=== PATIENT | male | born 1955 | race American Indian/Alaskan Native ===

== ENCOUNTER 2017-08-18 12:11 | Day surgery (SDC) | payer MEDICARE, OTHER ==
[2016-04-18 09:23] VITALS: BMI 46.8
[2017-08-18] MEDS ORDERED: Lactated Ringer's 1,000 ML IV ONE (13:34)
[2017-08-18] MEDS ORDERED: Iohexol 240 (50 ml) ONE (13:45)
[2017-08-18] MEDS ORDERED: Lidocaine 2% Jelly (Uro-Jet) ONE (13:46)
[2017-08-18] MEDS ORDERED: Oxycodone/Acetaminophen 5/325 mg Tab PO PRN (14:14)
[2017-08-18] MEDS ORDERED: Propofol 10 mg/ml Inj (20 ML) ONE ×2 (14:16→14:18)
[2017-08-18] MEDS ORDERED: Lidocaine Hydrochloride 5 ML INJ ONE (14:16)
[2017-08-18] MEDS ORDERED: Midazolam 2 MG/2 ML VIAL ONE (14:18)
[2017-08-18 16:33] VITALS: BP 148/90; PULSE 90; RESP 18; TEMP 97; O2SAT 100
--- NOTE | 2017-08-27 08:05 | HP ---
UROLOGY ADMISSION HISTORY AND PHYSICAL REASON FOR ADMISSION: Workup of voiding dysfunction. HISTORY OF PRESENT ILLNESS: This is a very pleasant gentleman, who is extremely compliant and has voiding dysfunction, irritative and obstructive complaints, and is here to rule out urethral stricture and for a possible cystoscopy and IOU, internal optical urethrotomy. PAST MEDICAL AND SURGICAL HISTORY: He has underlying history of circumcision from Urology standpoint. No history of an AK or CVA. REVIEW OF SYSTEMS: Listed above. No weight loss, chest pain, night sweats, etc. SOCIAL HISTORY: Essentially unremarkable. MEDICATIONS: See chart. ALLERGIES: NONE. PHYSICAL EXAMINATION: GENERAL: Well-nourished male, in no apparent distress. VITAL SIGNS: Within normal limits, included in the chart. NECK: No cervical or axillary lymphadenopathy. LUNGS: Clear. HEART: Normal S1 and S2. ABDOMEN: Overall, soft and nontender. GENITOURINARY: He has a normal male phallus. He is circumcised. The incision has healed well. No testicular masses. RECTAL: 20 - 30 gm prostate. LABORATORY DATA: Please see chart. PSA, BUN, creatinine, and CBC all noted. DIAGNOSES: Voiding dysfunction, decreased flow of stream, rule out urethral stricture. He has irritative and obstructive complaints. ASSESSMENT AND PLAN: Very pleasant gentleman with the above history. We discussed options. He does not want an office cystoscopy and given the fact that we are concerned for urethral strictures, we are going to plan for a cystoscopy and internal optical urethrotomy and further plans will follow. Antibiotics and prophylactics to be used. Risks and benefits were discussed at length. Location, options, etc, discussed. Jorge Louise MD
--- NOTE | 2017-08-27 08:29 | OP ---
PROCEDURE DATE: 08/18/2017 PREOPERATIVE DIAGNOSES: Irritative and obstructive voiding complaints, decreased flow of stream, nocturia. POSTOPERATIVE DIAGNOSES: Irritative and obstructive voiding complaints, decreased flow of stream, nocturia but no evidence of urethral stricture. PROCEDURE: Cystoscopy. SURGEON: Jorge Louise MD COMPLICATIONS: There were no complication. ESTIMATED BLOOD LOSS: Less than 10 mL. FINDINGS: Normal anterior urethra, no strictures. Meatus is normal. Anterior urethra is normal. The prostatic verumontanum is about 2 to 3 cm, fairly visually occlusive. No bladder lesions and multiple pictures were taken today. my recommendation. INDICATIONS: See the history and physical for details. A very pleasant gentleman who has voiding dysfunction, here for the above procedure. DESCRIPTION OF PROCEDURE: After obtaining the informed consent, the patient was placed on the table. Routine monitors were placed. Time-out was called to confirm patient positioning. Antibiotic prophylaxis was used. We ____ the patient. Cystoscope via the urethra. Normal anterior urethra is noted. There are no strictures and the verumontanum is visually occlusive. No bladder lesions were identified. The ureteral orifices with clear efflux on both sides. Multiple pictures were taken today. The patient tolerated the procedure well without complications. The rectal exam showed 20 to 30 gm prostate, soft and smooth. Jorge Louise MD
== END 2017-08-18 17:00 | disposition home or self-care (01) ==
LOC: C.SDS 12:11
PROVIDERS: ATTEND Urology
DX: R35.1 Nocturia (principal); R39.12 Poor urinary stream; R31.9 Hematuria, unspecified

== ENCOUNTER 2018-03-26 18:47 | Inpatient (IN) | payer MEDICARE, OTHER ==
[2018-03-26 18:54] VITALS: BMI 45.0
[2018-03-26 20:03] LABS: BASO # 0.1 K/uL (0.0-0.2); BASO % 1.4 % (0.0-2.0); EOS # 0.7 K/uL (0.0-0.7); HEMOGLOBIN 12.5 g/dL (12.0-18.0); LYMPH # 2.2 K/uL (1.0-4.3); LYMPH % 37.7 % (20.0-40.0); MEAN CELL VOLUME 84.7 fL (80.0-94.0); MEAN CORPUSCULAR HEMOGLOBIN 27.2 pg (27.0-31.0); MEAN CORPUSCULAR HGB CONC 32.1 g/dL (33.0-37.0); MONO # 0.6 K/uL (0.0-0.8); MONO % 10.4 % (0.0-10.0); NEUT # 2.3 K/uL (1.8-7.0); NEUT % 38.5 % (50.0-75.0); NRBC % 0.1 % (0.0-2.0); RBC 4.6 Mil/uL (4.40-5.90); RED CELL DISTRIBUTION WIDTH 13.2 % (11.5-14.5); WHITE BLOOD COUNT 5.9 K/uL (4.8-10.8)
[2018-03-26 20:08] LABS: SQUAMOUS EPITHIAL 2 /hpf (0-5); URINE BILIRUBIN NEGATIVE (NEGATIVE); URINE BLOOD NEGATIVE (NEGATIVE); URINE CLARITY Clear (Clear); URINE COLOR Yellow (YELLOW); URINE GLUCOSE (UA) NORMAL (Normal); URINE LEUKOCYTE ESTERASE NEG Leu/uL (Negative); URINE PROTEIN NEGATIVE (NEGATIVE)
[2018-03-26 20:19] LABS: ALB/GLOB RATIO 1.3 (1.0-2.1); ALBUMIN 4.1 g/dL (3.5-5.0); ALT/SGPT 19 U/L (21-72); AST/SGOT 17 U/L (17-59); BLOOD UREA NITROGEN 21 mg/dL (9-20); CALCIUM 9.8 mg/dl (8.6-10.4); GFR NON-AFRICAN AMERICAN > 60
--- NOTE | 2018-03-26 21:01 | C.PDOC ---
Addendum entered and electronically signed by Susie Madrigal PA-C 03/27/18 03:18: Addendum Addendum: 03/27/18 03:16 Case was d/w who admits for . Patient was accepted for observation and IV antibiotics. Original Note: History Of Present Illness 62 y/o male, with PMHx of diabetes, presents to ED for evaluation of ulcer to left inner ankle area for the last 3-4 days. Pt states he noticed ulcer was draining fluid today and has developed pain and swelling to the region. Pt states he was seen by tree feller for toenail treatments. Otherwise, denies fever, chills, redness, weakness, or numbness. Time Seen by Provider: 03/26/18 19:23 Chief Complaint (Nursing): Abnormal Skin Integrity History Per: Patient History/Exam Limitations: no limitations Onset/Duration Of Symptoms: Days Current Symptoms Are (Timing): Still Present Location Of Injury: Left: Ankle Quality Of Symptoms: Painful, Swollen, Draining Recent travel outside of the [place]: No Additional History Per: Patient Past Medical History Reviewed: Historical Data, Nursing Documentation, Vital Signs Vital Signs: Last Vital Signs Temp 97.7 F 03/26/18 18:53 Pulse 54 L 03/26/18 18:53 Resp 18 03/26/18 18:53 BP 128/70 03/26/18 18:53 Pulse Ox 100 03/26/18 18:53 - Medical History PMH: Cardia Arrhythmia ("I HAVE SOME KIND OF IRREGULAR HEART BEAT'), HTN, Hypercholesterolemia, Peripheral Edema Denies: Chronic Kidney Disease Family History: States: Unknown Family Hx - Social History Hx Alcohol Use: No Hx Substance Use: No - Immunization History Hx Tetanus Toxoid Vaccination: No Hx Influenza Vaccination: No Hx Pneumococcal Vaccination: No Review Of Systems Except As Marked, All Systems Reviewed And Found Negative. Constitutional: Negative for: Fever, Chills Musculoskeletal: Positive for: Foot Pain Skin: Positive for: Other (ulcer to left foot) Neurological: Negative for: Weakness, Numbness Physical Exam - Physical Exam Appears: Non-toxic, No Acute Distress Skin: Other (ulcer to left medial malleolus draining yellow fluid) Head: Atraumatic, Normacephalic Eye(s): bilateral: Normal Inspection Extremity: Normal ROM (FROM of left foot), Tenderness (left lateral malleolus region), No Calf Tenderness, Capillary Refill (less than 2 seconds), No Deformity, Swelling (swelling to left foot) Pulses: Left Dorsalis Pedis: Normal, Right Dorsalis Pedis: Normal Neurological/Psych: Oriented x3, Normal Speech, Normal Motor, Normal Sensation ED Course And Treatment - Laboratory Results Result Diagrams: 03/26/18 19:57 03/26/18 19:57 O2 Sat by Pulse Oximetry: 100 - Other Rad Left ankle Xray X-Ray: Interpreted by Me, Viewed By Me Interpretation: Arthritic changes. Flat foot. No obvious ostromyelitis. Progress Note: Blood work, UA, left ankle Xray ordered and reviewed. Will discuss case with Dr. Osuna. Disposition - Disposition Disposition: HOSPITALIZED Disposition Time: 21:32 Condition: FAIR Forms: [facility] (Greenlandic) - Clinical Impression Clinical Impression: Diabetic foot ulcer - PA / C++ PROFESSOR / Resident Statement MD/DO has reviewed & agrees with the documentation as recorded. - Scribe Statement The provider has reviewed the documentation as recorded by the Scribe KP All medical record entries made by the Scribe were at my direction and personally dictated by me. I have reviewed the chart and agree that the record accurately reflects my personal performance of the history, physical exam, medical decision making, and the department course for this patient. I have also personally directed, reviewed, and agree with the discharge instructions and disposition. Decision To Admit - Pt Status Changed To: Hospital Disposition Of: Observation - . Bed Request Type: Regular Admitting Physician: Noel Osuna Patient Diagnosis: Diabetic foot ulcer
[2018-03-26] MEDS ORDERED: Piperacillin/Tazobact 3.375 gm 100 ML IVPB ONE (22:25)
[2018-03-26] MEDS: (Novolin R) Insulin Human Regular 100 units/ml vial SC SCH (22:29)
[2018-03-26] MEDS: Piperacillin/Tazobact 3.375 GM in Sodium Chloride 100 ML IVPB SCH (22:29)
[2018-03-26 23:35] VITALS: RESP 20
[2018-03-27] MEDS: Piperacillin/Tazobact 3.375 GM in Sodium Chloride 100 ML IVPB SCH ×4 (03:20→21:31)
[2018-03-27] MEDS: (Novolin R) Insulin Human Regular 100 units/ml vial SC SCH ×4 (08:20→22:55)
--- NOTE | 2018-03-27 09:40 | CP.PCM.CON ---
<Geraldo Sweet - Last Filed: 03/27/18 09:40> Past Patient History - Infectious Disease Hx of Infectious Diseases: None - Past Medical History & Family History Past Medical History?: Yes - Past Social History Smoking Status: Never Smoked - CARDIAC Hx Cardia Arrhythmia: Yes ("I HAVE SOME KIND OF IRREGULAR HEART BEAT') Hx Hypercholesterolemia: Yes Hx Hypertension: Yes Hx Peripheral Edema: Yes - PULMONARY Hx Respiratory Disorders: No - NEUROLOGICAL Hx Neurological Disorder: No - HEENT Hx HEENT Problems: No - RENAL Hx Chronic Kidney Disease: No - ENDOCRINE/METABOLIC Hx Endocrine Disorders: Yes Hx Diabetes Mellitus Type 2: Yes - HEMATOLOGICAL/ONCOLOGICAL Hx Blood Disorders: No - INTEGUMENTARY Hx Dermatological Problems: No - MUSCULOSKELETAL/RHEUMATOLOGICAL Hx Musculoskeletal Disorders: No - GASTROINTESTINAL Hx Gastrointestinal Disorders: No - GENITOURINARY/GYNECOLOGICAL Hx Genitourinary Disorders: Yes Hx Hematuria: Yes - PSYCHIATRIC Hx Substance Use: No - SURGICAL HISTORY Hx Surgeries: Yes Hx Cardiac Catheterization: Yes Hx Orthopedic Surgery: Yes - ANESTHESIA Hx Anesthesia: Yes Hx Anesthesia Reactions: No Hx Malignant Hyperthermia: No Meds Allergies/Adverse Reactions: Allergies Allergy/AdvReac Type Severity Reaction Status Date / Time No Known Allergies Allergy Verified 03/26/18 18:53 - Medications Medications: Current Medications Apixaban (Eliquis) 5 mg PO BID [facility], [facility] Last Admin: 03/27/18 00:29 Dose: Not Given Carvedilol (Coreg) 25 mg PO DAILY [facility] Finasteride (Proscar) 5 mg PO DAILY [facility] Furosemide (Lasix) 40 mg PO DAILY [facility] Glimepiride (Amaryl) 4 mg PO BID [facility] Home Med (Potassium Chloride [Potassium Chloride]) 20 meq PO DAILY [facility]1983 Piperacillin Sod/Tazobactam (Sod 3.375 gm/ Sodium Chloride) 100 mls @ 200 mls/hr IVPB Q6H [facility], [facility]; Protocol Last Admin: 03/27/18 03:20 Dose: 200 mls/hr Insulin Human Regular (Novolin R) 0 unit SC [facility]; Protocol Last Admin: 03/27/18 08:20 Dose: Not Given Metformin HCl (Glucophage) 850 mg PO BID [facility]1983 Metoprolol Tartrate (Lopressor) 100 mg PO BID [facility]1983 Rosuvastatin Calcium (Crestor) 5 mg PO [facility] Last Admin: 03/26/18 22:30 Dose: 5 mg Sitagliptin Phosphate (Januvia) 50 mg PO DAILY [facility] Tamsulosin HCl (Flomax) 0.4 mg PO DAILY [facility] Results - Vital Signs Recent Vital Signs: Last Vital Signs Temp 97.7 F 03/27/18 07:00 Pulse 60 03/27/18 07:00 Resp 20 03/27/18 07:00 BP 151/91 H 03/27/18 07:00 Pulse Ox 99 03/27/18 07:00 - Labs Result Diagrams: 03/26/18 19:57 03/26/18 19:57 Labs: Laboratory Results - last 24 hr 03/26/18 03/26/18 03/26/18 18:56 19:57 19:57 WBC 5.9 RBC 4.60 Hgb 12.5 Hct 38.9 MCV 84.7 MCH 27.2 MCHC 32.1 L RDW 13.2 Plt Count 221 MPV 9.0 Neut % (Auto) 38.5 L Lymph % (Auto) 37.7 Blount % (Auto) 10.4 H Eos % (Auto) 12.0 H Baso % (Auto) 1.4 Neut # (Auto) 2.3 Lymph # (Auto) 2.2 Blount # (Auto) 0.6 Eos # (Auto) 0.7 Baso # (Auto) 0.1 Sodium Potassium Chloride Carbon Dioxide Anion Gap BUN Creatinine Est GFR ( Amer) Est GFR (Non-Af Amer) POC Glucose (mg/dL) 128 H Random Glucose Calcium Total Bilirubin AST ALT Alkaline Phosphatase Total Protein Albumin Globulin Albumin/Globulin Ratio Urine Color Yellow Urine Clarity Clear Urine pH 5.0 Ur Specific Bryant 1.016 Urine Protein Negative Urine Glucose (UA) Normal Urine Ketones Negative Urine Blood Negative Urine Nitrate Negative Urine Bilirubin Negative Urine Urobilinogen 4.0 Ur Leukocyte Esterase Neg Urine WBC (Auto) < 1 Urine RBC (Auto) 1 Ur Squamous Epith Cells 2 03/26/18 03/26/18 03/27/18 19:57 22:26 06:58 WBC RBC Hgb Hct MCV MCH MCHC RDW Plt Count MPV Neut % (Auto) Lymph % (Auto) Blount % (Auto) Eos % (Auto) Baso % (Auto) Neut # (Auto) Lymph # (Auto) Blount # (Auto) Eos # (Auto) Baso # (Auto) Sodium 142 Potassium 4.4 Chloride 104 Carbon Dioxide 24 Anion Gap 18 BUN 21 H Creatinine 1.1 Est GFR ( Amer) > 60 Est GFR (Non-Af Amer) > 60 POC Glucose (mg/dL) 81 79 Random Glucose 141 H Calcium 9.8 Total Bilirubin 0.6 AST 17 ALT 19 L Alkaline Phosphatase 35 L Total Protein 7.4 Albumin 4.1 Globulin 3.3 Albumin/Globulin Ratio 1.3 Urine Color Urine Clarity Urine pH Ur Specific Bryant Urine Protein Urine Glucose (UA) Urine Ketones Urine Blood Urine Nitrate Urine Bilirubin Urine Urobilinogen Ur Leukocyte Esterase Urine WBC (Auto) Urine RBC (Auto) Ur Squamous Epith Cells <Cristiana Banks - Last Filed: 03/27/18 15:03> History of Present Illness - History of Present Illness History of Present Illness: Podiatry Consult Note for Dr. Sweet: 62 yo male patient, with PMHx of DM, seen and evaluated at bedside for L ankle ulceration. Patient was admitted for observation and IV antibiotics for L ankle ulcer. Patient states that the ulceration appeared 3-4 days ago and he presented to the ED once he noticed it was draining. Patient reports mild pain and tenderness to the area. He currently denies N/V/F/SOB/CP. PMHx: DM ALL: NKDA Review of Systems - Review of Systems Review of Systems: As per HPI Meds - Medications Medications: Current Medications Apixaban (Eliquis) 5 mg PO BID [facility] Last Admin: 03/27/18 10:09 Dose: 5 mg Carvedilol (Coreg) 25 mg PO DAILY [facility] Last Admin: 03/27/18 10:11 Dose: 25 mg Finasteride (Proscar) 5 mg PO DAILY [facility] Last Admin: 03/27/18 10:09 Dose: 5 mg Furosemide (Lasix) 40 mg PO DAILY [facility] Last Admin: 03/27/18 10:11 Dose: 40 mg Glimepiride (Amaryl) 4 mg PO BID [facility] Last Admin: 03/27/18 10:09 Dose: 4 mg Piperacillin Sod/Tazobactam (Sod 3.375 gm/ Sodium Chloride) 100 mls @ 200 mls/hr IVPB Q6H [facility]; Protocol Last Admin: 03/27/18 10:30 Dose: 200 mls/hr Insulin Human Regular (Novolin R) 0 unit SC A[facility]S [facility]; Protocol Last Admin: 03/27/18 12:17 Dose: Not Given Metformin HCl (Glucophage) 850 mg PO BID [facility] Last Admin: 03/27/18 10:09 Dose: 850 mg Metoprolol Tartrate (Lopressor) 100 mg PO BID [facility] Last Admin: 03/27/18 10:09 Dose: 100 mg Potassium Chloride (K-Dur 20 Meq Er Tab) 20 meq PO DAILY [facility] Last Admin: 03/27/18 10:36 Dose: 20 meq Rosuvastatin Calcium (Crestor) 5 mg PO HS [facility] Last Admin: 03/26/18 22:30 Dose: 5 mg Sitagliptin Phosphate (Januvia) 50 mg PO DAILY [facility] Last Admin: 03/27/18 10:11 Dose: 50 mg Tamsulosin HCl (Flomax) 0.4 mg PO DAILY [facility] Last Admin: 03/27/18 10:09 Dose: 0.4 mg Physical Exam - Constitutional Appears: Well, Non-toxic, No Acute Distress - Head Exam Head Exam: ATRAUMATIC, NORMOCEPHALIC - Extremities Exam Additional comments: B/L Lower extremity exam: Vascular: DP/PT pulses 1/4 bilaterally secondary to edema, CFT < 3 seconds to all digits, TG warm to warm, Pedal hair absent, +2 pitting edema to bilateral lower extremities Ortho: No pain upon palpation of L lower extremity ulceration. MMT 5/5 Neuro: Gross sensation intact b/l Derm: Multiple small ulceration noted to L medial ankle with positive weeping noted of serous drainage, mild erythema present, no tunneling, no tracking, no streaking, no probe to bone, no clinical signs of infection. Hyperpigmented skin with lichenification noted to anterior aspect of b/l lower extremities - Neurological Exam Neurological exam: Alert, Oriented x3 - Psychiatric Exam Psychiatric exam: Normal Affect, Normal Mood Results - Vital Signs Recent Vital Signs: Last Vital Signs Temp 97.7 F 03/27/18 07:00 Pulse 60 03/27/18 07:00 Resp 20 03/27/18 07:00 BP 151/91 H 03/27/18 10:11 Pulse Ox 99 03/27/18 07:00 - Labs Result Diagrams: 03/26/18 19:57 03/26/18 19:57 Labs: Laboratory Results - last 24 hr 03/26/18 03/26/18 03/26/18 18:56 19:57 19:57 WBC 5.9 RBC 4.60 Hgb 12.5 Hct 38.9 MCV 84.7 MCH 27.2 MCHC 32.1 L RDW 13.2 Plt Count 221 MPV 9.0 Neut % (Auto) 38.5 L Lymph % (Auto) 37.7 Blount % (Auto) 10.4 H Eos % (Auto) 12.0 H Baso % (Auto) 1.4 Neut # (Auto) 2.3 Lymph # (Auto) 2.2 Blount # (Auto) 0.6 Eos # (Auto) 0.7 Baso # (Auto) 0.1 Sodium Potassium Chloride Carbon Dioxide Anion Gap BUN Creatinine Est GFR ( Amer) Est GFR (Non-Af Amer) POC Glucose (mg/dL) 128 H Random Glucose Calcium Total Bilirubin AST ALT Alkaline Phosphatase Total Protein Albumin Globulin Albumin/Globulin Ratio Urine Color Yellow Urine Clarity Clear Urine pH 5.0 Ur Specific Bryant 1.016 Urine Protein Negative Urine Glucose (UA) Normal Urine Ketones Negative Urine Blood Negative Urine Nitrate Negative Urine Bilirubin Negative Urine Urobilinogen 4.0 Ur Leukocyte Esterase Neg Urine WBC (Auto) < 1 Urine RBC (Auto) 1 Ur Squamous Epith Cells 2 03/26/18 03/26/18 03/27/18 19:57 22:26 06:58 WBC RBC Hgb Hct MCV MCH MCHC RDW Plt Count MPV Neut % (Auto) Lymph % (Auto) Blount % (Auto) Eos % (Auto) Baso % (Auto) Neut # (Auto) Lymph # (Auto) Blount # (Auto) Eos # (Auto) Baso # (Auto) Sodium 142 Potassium 4.4 Chloride 104 Carbon Dioxide 24 Anion Gap 18 BUN 21 H Creatinine 1.1 Est GFR ( Amer) > 60 Est GFR (Non-Af Amer) > 60 POC Glucose (mg/dL) 81 79 Random Glucose 141 H Calcium 9.8 Total Bilirubin 0.6 AST 17 ALT 19 L Alkaline Phosphatase 35 L Total Protein 7.4 Albumin 4.1 Globulin 3.3 Albumin/Globulin Ratio 1.3 Urine Color Urine Clarity Urine pH Ur Specific Bryant Urine Protein Urine Glucose (UA) Urine Ketones Urine Blood Urine Nitrate Urine Bilirubin Urine Urobilinogen Ur Leukocyte Esterase Urine WBC (Auto) Urine RBC (Auto) Ur Squamous Epith Cells 03/27/18 11:17 WBC RBC Hgb Hct MCV MCH MCHC RDW Plt Count MPV Neut % (Auto) Lymph % (Auto) Blount % (Auto) Eos % (Auto) Baso % (Auto) Neut # (Auto) Lymph # (Auto) Blount # (Auto) Eos # (Auto) Baso # (Auto) Sodium Potassium Chloride Carbon Dioxide Anion Gap BUN Creatinine Est GFR ( Amer) Est GFR (Non-Af Amer) POC Glucose (mg/dL) 125 H Random Glucose Calcium Total Bilirubin AST ALT Alkaline Phosphatase Total Protein Albumin Globulin Albumin/Globulin Ratio Urine Color Urine Clarity Urine pH Ur Specific Bryant Urine Protein Urine Glucose (UA) Urine Ketones Urine Blood Urine Nitrate Urine Bilirubin Urine Urobilinogen Ur Leukocyte Esterase Urine WBC (Auto) Urine RBC (Auto) Ur Squamous Epith Cells Assessment & Plan - Assessment and Plan (Free Text) Assessment: 62 yo male patient, with PMHx of DM, seen and evaluated at bedside for L ankle ulceration. Plan: Patient seen and evaluated with Dr. Micki OJEDA, absent leukocytosis Wound culture taken from L ankle; pending Local wound care: Betadine, DSD - Wound stable, no surgical intervention at this time Will continue to follow while in house Thank you for the consult - Date & Time Date: 03/27/18 Time: 15:01
[2018-03-27] MEDS ORDERED: Home Med 1 UNIT (Potassium Chloride [Potassium Chloride] 20 MEQ) PO SCH (10:00)
[2018-03-27] MEDS: Potassium Chloride 20 mEq ER Tab PO SCH (10:36)
[2018-03-27] MEDS ORDERED: Pneumococcal 23-Valent Vaccine IM ONE (16:18)
--- NOTE | 2018-03-27 17:09 | RAD ---
Left ankle three views HISTORY: Diabetic foot ulcer COMPARISON: None available. FINDINGS: Large soft tissue ulcer/defect within the lateral soft tissues extending to the lateral cortex of the talus and calcaneus. At that level, there is cortical thickening and sclerosis. Underlying osteomyelitis at this level cannot be excluded. In addition, there appears to be cortical irregularity seen at the base of the 5th metatarsal bone also concerning for possible acute osteomyelitis. Further evaluation with MRI would be helpful for if clinically indicated. Prior surgical hardware tract within the distal fibula. Soft tissue swelling with calcifications in the soft tissues. Productive change or cortical prominence of the medial malleolus of the distal tibia as well as the medial cortex of the talus, nonspecific. Underlying acute infectious and or inflammatory changes at this level cannot be excluded. Partial bony fusion the midfoot which may be related to underlying Charcot arthropathy however sequelae of acute infectious and or inflammatory changes cannot be excluded. Clinical correlation. Destructive changes noted at the level of the 4th metatarsal head with subluxation. Clinical correlation. Pes planus deformity. Severe degenerative changes in the dorsal aspect of the midfoot with bony spurring. Prominent narrowing of the tibiotalar joint space. Prominent plantar calcaneal spurring. Prominent productive change at the volar aspect of the midfoot. IMPRESSION: Large soft tissue ulcer/defect within the lateral soft tissues extending to the lateral cortex of the talus and calcaneus. At that level, there is cortical thickening and sclerosis. Underlying osteomyelitis at this level cannot be excluded. In addition, there appears to be cortical irregularity seen at the base of the 5th metatarsal bone also concerning for possible acute osteomyelitis. Further evaluation with MRI would be helpful for if clinically indicated. Prior surgical hardware tract within the distal fibula. Soft tissue swelling with calcifications in the soft tissues. Productive change or cortical prominence of the medial malleolus of the distal tibia as well as the medial cortex of the talus, nonspecific. Underlying acute infectious and or inflammatory changes at this level cannot be excluded. Partial bony fusion the midfoot which may be related to underlying Charcot arthropathy however sequelae of acute infectious and or inflammatory changes cannot be excluded. Clinical correlation. Destructive changes noted at the level of the 4th metatarsal head with subluxation. Clinical correlation. Pes planus deformity. Severe degenerative changes in the dorsal aspect of the midfoot with bony spurring. Prominent narrowing of the tibiotalar joint space. Prominent plantar calcaneal spurring. Prominent productive change at the volar aspect of the midfoot.
--- NOTE | 2018-03-27 21:48 | CP.PCM.HP ---
Past Patient History - Infectious Disease Hx of Infectious Diseases: None - Past Medical History & Family History Past Medical History?: Yes - Past Social History Smoking Status: Never Smoked - CARDIAC Hx Cardia Arrhythmia: Yes ("I HAVE SOME KIND OF IRREGULAR HEART BEAT') Hx Hypercholesterolemia: Yes Hx Hypertension: Yes Hx Peripheral Edema: Yes - PULMONARY Hx Respiratory Disorders: No - NEUROLOGICAL Hx Neurological Disorder: No - HEENT Hx HEENT Problems: No - RENAL Hx Chronic Kidney Disease: No - ENDOCRINE/METABOLIC Hx Endocrine Disorders: Yes Hx Diabetes Mellitus Type 2: Yes - HEMATOLOGICAL/ONCOLOGICAL Hx Blood Disorders: No - INTEGUMENTARY Hx Dermatological Problems: No - MUSCULOSKELETAL/RHEUMATOLOGICAL Hx Musculoskeletal Disorders: No - GASTROINTESTINAL Hx Gastrointestinal Disorders: No - GENITOURINARY/GYNECOLOGICAL Hx Genitourinary Disorders: Yes Hx Hematuria: Yes - PSYCHIATRIC Hx Substance Use: No - SURGICAL HISTORY Hx Surgeries: Yes Hx Cardiac Catheterization: Yes Hx Orthopedic Surgery: Yes - ANESTHESIA Hx Anesthesia: Yes Hx Anesthesia Reactions: No Hx Malignant Hyperthermia: No Meds Allergies/Adverse Reactions: Allergies Allergy/AdvReac Type Severity Reaction Status Date / Time No Known Allergies Allergy Verified 03/26/18 18:53 Results - Vital Signs Recent Vital Signs: Last Vital Signs Temp 97.5 F L 03/27/18 15:54 Pulse 60 03/27/18 15:54 Resp 20 03/27/18 15:54 BP 149/75 03/27/18 15:54 Pulse Ox 99 03/27/18 17:05 - Labs Result Diagrams: 03/26/18 19:57 03/26/18 19:57 Labs: Laboratory Results - last 24 hr 03/26/18 03/27/18 03/27/18 22:26 06:58 11:17 POC Glucose (mg/dL) 81 79 125 H 03/27/18 16:15 POC Glucose (mg/dL) 128 H
[2018-03-28] MEDS: Piperacillin/Tazobact 3.375 GM in Sodium Chloride 100 ML IVPB SCH ×4 (03:11→21:16)
[2018-03-28] MEDS: (Novolin R) Insulin Human Regular 100 units/ml vial SC SCH ×4 (07:46→21:18)
[2018-03-28] MEDS: Potassium Chloride 20 mEq ER Tab PO SCH (10:12)
--- NOTE | 2018-03-28 12:36 | CP.PCM.PN ---
Subjective - Date & Time of Evaluation Date of Evaluation: 03/28/18 Time of Evaluation: 12:35 - Subjective Subjective: Podiatry Progress Note for Dr. Sweet: 62 yo male patient, seen and evaluated at bedside for L medial ankle ulceration. Patient states that his foot has mild drainage today. He presents with no pain to his LLE and denies any new pedal complaints. Denies N/V/F/SOB/CP. Objective - Vital Signs/Intake and Output Vital Signs (last 24 hours): Temp Pulse Resp BP Pulse Ox 98.4 F 60 20 162/73 H 95 03/28/18 07:00 03/28/18 07:00 03/28/18 07:00 03/28/18 10:13 03/28/18 07:00 Intake and Output: 03/28/18 03/28/18 06:59 18:59 Intake Total 500 610 Output Total 800 Balance -300 610 - Medications Medications: Current Medications Apixaban (Eliquis) 5 mg PO BID [facility] Last Admin: 03/28/18 10:12 Dose: 5 mg Carvedilol (Coreg) 25 mg PO DAILY [facility] Last Admin: 03/28/18 10:13 Dose: 25 mg Finasteride (Proscar) 5 mg PO DAILY [facility] Last Admin: 03/28/18 10:12 Dose: 5 mg Furosemide (Lasix) 40 mg PO DAILY [facility] Last Admin: 03/28/18 10:13 Dose: 40 mg Glimepiride (Amaryl) 4 mg PO BID [facility] Last Admin: 03/28/18 10:12 Dose: 4 mg Piperacillin Sod/Tazobactam (Sod 3.375 gm/ Sodium Chloride) 100 mls @ 200 mls/hr IVPB Q6H [facility]; Protocol Last Admin: 03/28/18 10:13 Dose: 200 mls/hr Influenza Virus Vaccine (Fluzone Quad [id number]) 60 mcg IM .ONCE ONE Stop: 03/29/18 10:01 Insulin Human Regular (Novolin R) 0 unit SC [facility]; Protocol Last Admin: 03/28/18 12:07 Dose: Not Given Metformin HCl (Glucophage) 850 mg PO BID [facility] Last Admin: 03/28/18 10:12 Dose: 850 mg Metoprolol Tartrate (Lopressor) 100 mg PO BID [facility] Last Admin: 10/21/18 10:12 Dose: 100 mg Pneumococcal Polyvalent Vaccine (Pneumovax 23 Vaccine) 0.5 ml IM .ONCE ONE Stop: 03/29/18 10:01 Potassium Chloride (K-Dur 20 Meq Er Tab) 20 meq PO DAILY [facility] Last Admin: 03/28/18 10:12 Dose: 20 meq Rosuvastatin Calcium (Crestor) 5 mg PO HS [facility] Last Admin: 03/27/18 21:31 Dose: 5 mg Sitagliptin Phosphate (Januvia) 50 mg PO DAILY [facility] Last Admin: 03/28/18 10:15 Dose: 50 mg Tamsulosin HCl (Flomax) 0.4 mg PO DAILY [facility] Last Admin: 03/28/18 10:12 Dose: 0.4 mg - Labs Labs: 03/26/18 19:57 03/26/18 19:57 - Constitutional Appears: Well, Non-toxic, No Acute Distress - Head Exam Head Exam: ATRAUMATIC, NORMOCEPHALIC - Extremities Exam Additional comments: B/L Lower extremity exam: Vascular: DP/PT pulses 1/4 bilaterally secondary to edema, CFT < 3 seconds to all digits, TG warm to warm, Pedal hair absent, +2 pitting edema to bilateral lower extremities Ortho: No pain upon palpation of L lower extremity ulceration. MMT 5/5 Neuro: Gross sensation intact b/l Derm: Multiple small ulceration noted to L medial ankle with positive weeping noted of serous drainage, mild erythema present, no tunneling, no tracking, no streaking, no probe to bone, no clinical signs of infection. Hyperpigmented skin with lichenification noted to anterior aspect of b/l lower extremities - Neurological Exam Neurological Exam: Alert, Awake, Oriented x3 - Psychiatric Exam Psychiatric exam: Normal Affect, Normal Mood Assessment and Plan - Assessment and Plan (Free Text) Assessment: 62 yo male patient, seen and evaluated at bedside for L ankle ulceration with weeping Plan: Patient seen and evaluated, discussed patient plan in detail with Dr. Micki OJEDA, NNL L ankle x-ray: Cortical irregularity seen at the base of the 5th metatarsal bone. Partial bony fusion in the midfoot which maybe related to underlying charcot, however sequelea of acute infectious and or inflammatory changes cannot be excluded L foot x-ray ordered (03/28); pending Wound culture taken from L ankle; Coag - Staph Continue with IV abx Local wound care: Betadine, DSD - Wound stable, no surgical intervention at this time Will continue to follow while in house
--- NOTE | 2018-03-28 16:31 | RAD ---
Date of service: 03/28/2018 PROCEDURE: Left Foot Radiographs. HISTORY: L foot edema COMPARISON: None. FINDINGS: BONES: No acute fracture. No evidence of osteomyelitis. Erosive changes 5th digit distally. Pes planus deformity. JOINTS: Findings suggestive of neuropathic foot/Charcot. SOFT TISSUES: Soft tissue swelling from the level of the metatarsals to the digits. OTHER FINDINGS: None. IMPRESSION: Soft tissue swelling without acute articular or osseous abnormality.
--- NOTE | 2018-03-28 21:45 | CP.PCM.PN ---
Subjective - Subjective Subjective: dictated Objective - Vital Signs/Intake and Output Vital Signs (last 24 hours): Temp Pulse Resp BP Pulse Ox 97.8 F 58 L 20 139/77 98 03/28/18 16:00 03/28/18 17:59 03/28/18 17:59 03/28/18 17:59 03/28/18 17:59 Intake and Output: 03/28/18 03/29/18 18:59 06:59 Intake Total 1290 Balance 1290 - Medications Medications: Current Medications Apixaban (Eliquis) 5 mg PO BID [facility] Last Admin: 03/28/18 17:40 Dose: 5 mg Carvedilol (Coreg) 25 mg PO DAILY [facility] Last Admin: 03/28/18 10:13 Dose: 25 mg Finasteride (Proscar) 5 mg PO DAILY [facility] Last Admin: 03/28/18 10:12 Dose: 5 mg Furosemide (Lasix) 40 mg PO DAILY [facility] Last Admin: 03/28/18 10:13 Dose: 40 mg Glimepiride (Amaryl) 4 mg PO BID [facility] Last Admin: 03/28/18 17:40 Dose: Not Given Piperacillin Sod/Tazobactam (Sod 3.375 gm/ Sodium Chloride) 100 mls @ 200 mls/hr IVPB Q6H [facility]; Protocol Last Admin: 03/28/18 21:16 Dose: 200 mls/hr Influenza Virus Vaccine (Fluzone Quad [id number]) 60 mcg IM .ONCE ONE Stop: 03/29/18 10:01 Insulin Human Regular (Novolin R) 0 unit SC ACHS [facility]; Protocol Last Admin: 03/28/18 21:18 Dose: Not Given Metformin HCl (Glucophage) 850 mg PO BID [facility] Last Admin: 03/28/18 17:41 Dose: Not Given Metoprolol Tartrate (Lopressor) 100 mg PO BID [facility] Last Admin: 03/28/18 17:40 Dose: 100 mg Pneumococcal Polyvalent Vaccine (Pneumovax 23 Vaccine) 0.5 ml IM .ONCE ONE Stop: 03/29/18 10:01 Potassium Chloride (K-Dur 20 Meq Er Tab) 20 meq PO DAILY [facility] Last Admin: 03/28/18 10:12 Dose: 20 meq Rosuvastatin Calcium (Crestor) 5 mg PO HS [facility] Last Admin: 03/28/18 21:16 Dose: 5 mg Sitagliptin Phosphate (Januvia) 50 mg PO DAILY [facility] Last Admin: 03/28/18 10:15 Dose: 50 mg Tamsulosin HCl (Flomax) 0.4 mg PO DAILY [facility] Last Admin: 03/28/18 10:12 Dose: 0.4 mg - Labs Labs: 03/26/18 19:57 03/26/18 19:57
[2018-03-29] MEDS: Piperacillin/Tazobact 3.375 GM in Sodium Chloride 100 ML IVPB SCH ×4 (04:05→21:39)
--- NOTE | 2018-03-29 06:23 | PN ---
DATE: 03/28/2018 SUBJECTIVE: The patient, Devon, is improving. He is afebrile. He is on antibiotics, and he is draining discharge from left ankle. Blood sugars are good. PHYSICAL EXAMINATION: VITAL SIGNS: Blood pressure 139/77, pulse 58, respiratory rate 20, temperature 97.8. LUNGS: Clear. CVS: S1, S2 regular. ABDOMEN: Soft. ASSESSMENT: 1. Left leg infection with cellulitis. 2. Type 2 diabetes. 3. Hypertension. PLAN: Antibiotics. Wound care. Monitor the patient. Noel Osuna MD
--- NOTE | 2018-03-29 06:23 | HP ---
CHIEF COMPLAINT: Pain in the left ankle with discharge x1 week. HISTORY OF PRESENT ILLNESS: This is a 62-year-old male with history of type 2 diabetes for 20 years, hypertension, hyperlipidemia, and unknown cardiac problems. He is compliant with his diet, medication, and followup. The patient came because of discharge that started from the medial aspect of his left ankle. According to him, he was moving around and all of a sudden he started having purulent discharge from his left ankle on the medial aspect. He has chronic numbness. He has chronic changes in the legs and feet with venous stasis. He has fever, chills, but he is not able to quantify. There is no dysuria, hematuria. He denies any shortness of breath. He denies any chest pain, palpitation. He denies any weakness, dizziness. He denies any history of polyuria, polydipsia, polyphagia. He denies any history of hematuria, pyuria. PAST MEDICAL HISTORY: Positive for type 2 diabetes, hypertension, hyperlipidemia. SOCIAL HISTORY: He is a nonsmoker, social [employer] user. CURRENT MEDICATIONS: At home are Flomax, potassium chloride, Zocor, Lopressor, Amaryl, Lasix, Proscar, Eliquis, Coreg, Diovan, Janumet, Nizoral, Trulicity. FAMILY HISTORY: Noncontributory. PHYSICAL EXAMINATION: GENERAL: This is an elderly male in no distress. VITAL SIGNS: Blood pressure 149/75, pulse 60, respiratory rate 20, temperature 97.5. SKIN: The patient has chronic venous stasis changes in bilateral legs. HEENT: Atraumatic, normocephalic. Negative pallor. Negative jaundice. Extraocular movements are intact. NECK: Supple. No JVD. No lymph node. No thyromegaly. No carotid bruits. CHEST: Chest wall bilateral symmetrical expansion. LUNGS: Bilaterally clear. No rales. No rhonchi. CARDIOVASCULAR SYSTEM: PMI not localized. S1, S2, regular. ABDOMEN: Soft, nontender. Bowel sounds are positive. RECTAL: Enlarged prostate. EXTREMITIES: No clubbing, cyanosis. CENTRAL NERVOUS SYSTEM: Awake, alert, oriented x3. Decreased sensation in the feet bilaterally. ASSESSMENT: 1. Left ankle ulcer with purulent discharge. Pending cultures. Seen by Podiatry. 2. Hypertension. 3. Type 2 diabetes. 4. Hyperlipidemia. PLAN: Accu-Chek, sliding scale, antibiotics. Monitor the patient. Noel Osuna MD
[2018-03-29] MEDS: (Novolin R) Insulin Human Regular 100 units/ml vial SC SCH ×2 (08:08→11:46)
[2018-03-29] MEDS: Potassium Chloride 20 mEq ER Tab PO SCH (09:59)
[2018-03-29] MEDS ORDERED: Pneumococcal 23-Valent Vaccine IM ONE (10:00)
[2018-03-29] MEDS ORDERED: Influenza Vaccine 60 MCG/0.5 ML SYR (3 yr & up) IM ONE (10:00)
--- NOTE | 2018-03-29 10:57 | CP.PCM.PN ---
Subjective - Date & Time of Evaluation Date of Evaluation: 03/29/18 Time of Evaluation: 10:57 - Subjective Subjective: Podiatry Progress Note for Dr. Sweet: 62 y/o male patient seen and evaluated at bedside with attending Dr. Sweet for L medial ankle ulceration. Patient states that hiis dressing has remained intact. He says he has no pain to his LLE and denies any new pedal complaints. Denies N/V/F/SOB/CP. Objective - Vital Signs/Intake and Output Vital Signs (last 24 hours): Temp Pulse Resp BP Pulse Ox 97.6 F 58 L 20 166/70 H 96 03/29/18 08:13 03/29/18 08:13 03/29/18 08:13 03/29/18 09:59 03/29/18 08:13 Intake and Output: 03/29/18 03/29/18 06:59 18:59 Intake Total 500 300 Output Total 900 1400 Balance -400 -1100 - Medications Medications: Current Medications Apixaban (Eliquis) 5 mg PO BID [facility] Last Admin: 03/29/18 09:59 Dose: 5 mg Carvedilol (Coreg) 25 mg PO DAILY [facility] Last Admin: 03/29/18 09:59 Dose: 25 mg Finasteride (Proscar) 5 mg PO DAILY [facility] Last Admin: 03/29/18 09:59 Dose: 5 mg Furosemide (Lasix) 40 mg PO DAILY [facility] Last Admin: 03/29/18 09:59 Dose: 40 mg Glimepiride (Amaryl) 4 mg PO BID [facility] Last Admin: 03/28/18 17:40 Dose: Not Given Piperacillin Sod/Tazobactam (Sod 3.375 gm/ Sodium Chloride) 100 mls @ 200 mls /hr IVPB Q6H [facility]; Protocol Last Admin: 03/29/18 09:54 Dose: 200 mls/hr Insulin Human Regular (Novolin R) 0 unit SC ACHS [facility]; Protocol Last Admin: 03/29/18 08:08 Dose: Not Given Metformin HCl (Glucophage) 850 mg PO BID [facility] Last Admin: 03/29/18 09:59 Dose: 850 mg Metoprolol Tartrate (Lopressor) 100 mg PO BID [facility] Last Admin: 03/29/18 09:59 Dose: 100 mg Potassium Chloride (K-Dur 20 Meq Er Tab) 20 meq PO DAILY [facility] Last Admin: 03/29/18 09:59 Dose: 20 meq Rosuvastatin Calcium (Crestor) 5 mg PO HS [facility] Last Admin: 03/28/18 21:16 Dose: 5 mg Sitagliptin Phosphate (Januvia) 50 mg PO DAILY [facility] Last Admin: 03/29/18 09:59 Dose: 50 mg Tamsulosin HCl (Flomax) 0.4 mg PO DAILY [facility] Last Admin: 03/29/18 09:59 Dose: 0.4 mg - Labs Labs: 03/26/18 19:57 03/26/18 19:57 - Constitutional Appears: Well, Non-toxic, No Acute Distress - Extremities Exam Additional comments: B/L Lower extremity exam: Vascular: DP/PT pulses 1/4 bilaterally secondary to edema. CFT < 3 seconds to all digits, TG warm to warm. Pedal hair absent. +2 pitting edema to bilateral lower extremities Ortho: No pain upon palpation of left lower extremity ulceration site. MMT 5/5 Neuro: Gross sensation intact b/l Derm: Medial ankle exhibits fully healed ulceration sites with no tunneling, no tracking, no streaking, no probe to bone, no clinical signs of infection. Hyperpigmented skin with lichenification noted to anterior aspect of bilateral lower extremities - Neurological Exam Neurological Exam: Alert, Awake, Oriented x3 - Psychiatric Exam Psychiatric exam: Normal Affect, Normal Mood Assessment and Plan - Assessment and Plan (Free Text) Assessment: 62 y/o male patient with left ankle ulceration, healed Plan: Patient seen and evaluated at bedside with Dr. Micki Garcia ankle x-ray: Cortical irregularity seen at the base of the 5th metatarsal bone. Partial bony fusion in the midfoot which maybe related to underlying charcot, however sequelea of acute infectious and or inflammatory changes cannot be excluded L foot x-ray exhibits neuropathic changes consistent with Charcot foot; erosive changes distally to 5th metatarsal Wound culture taken from L ankle; Coag - Staph Continue with IV abx Wound healed at this time, covered with dry dressing for protection Bone scan ordered to evaluate possible infectious process vs. Charcot of LLE Will continue to follow while in house
[2018-03-29 11:14] LABS: BASO # 0.1 K/uL (0.0-0.2); BASO % 1.4 % (0.0-2.0); EOS # 0.6 K/uL (0.0-0.7); EOS % 10.2 % (0.0-4.0); HEMOGLOBIN 12.5 g/dL (12.0-18.0); LYMPH # 2.2 K/uL (1.0-4.3); LYMPH % 38.2 % (20.0-40.0); MEAN CELL VOLUME 84.4 fL (80.0-94.0); MEAN CORPUSCULAR HEMOGLOBIN 27.6 pg (27.0-31.0); MEAN CORPUSCULAR HGB CONC 32.7 g/dL (33.0-37.0); MEAN PLATELET VOLUME 8.9 fL (7.2-11.7); MONO # 0.5 K/uL (0.0-0.8); MONO % 9.3 % (0.0-10.0); NEUT # 2.3 K/uL (1.8-7.0); NEUT % 40.9 % (50.0-75.0); NRBC % 0.1 % (0.0-2.0); RBC 4.55 Mil/uL (4.40-5.90); RED CELL DISTRIBUTION WIDTH 13.5 % (11.5-14.5); WHITE BLOOD COUNT 5.6 K/uL (4.8-10.8)
[2018-03-29 11:51] LABS: BLOOD UREA NITROGEN 14 mg/dL (9-20); CALCIUM 9.5 mg/dl (8.6-10.4); GFR NON-AFRICAN AMERICAN > 60
--- NOTE | 2018-03-29 23:54 | CP.PCM.PN ---
Subjective - Subjective Subjective: dictated Objective - Vital Signs/Intake and Output Vital Signs (last 24 hours): Temp Pulse Resp BP Pulse Ox 97.5 F L 56 L 20 144/78 62 L 03/29/18 16:23 03/29/18 16:23 03/29/18 16:23 03/29/18 16:23 03/29/18 17:25 Intake and Output: 03/29/18 03/30/18 18:59 06:59 Intake Total 900 650 Output Total 1400 1200 Balance -500 -550 - Medications Medications: Current Medications Apixaban (Eliquis) 5 mg PO BID [facility] Last Admin: 03/29/18 17:21 Dose: 5 mg Finasteride (Proscar) 5 mg PO DAILY [facility] Last Admin: 03/29/18 09:59 Dose: 5 mg Furosemide (Lasix) 40 mg PO DAILY [facility] Last Admin: 03/29/18 09:59 Dose: 40 mg Piperacillin Sod/Tazobactam (Sod 3.375 gm/ Sodium Chloride) 100 mls @ 200 mls/hr IVPB Q6H [facility]; Protocol Last Admin: 03/29/18 21:39 Dose: 200 mls/hr Insulin Human Regular (Novolin R) 0 unit SC ACHS [facility]; Protocol Last Admin: 03/29/18 11:46 Dose: Not Given Losartan Potassium (Cozaar) 50 mg PO DAILY [facility] Metformin HCl (Glucophage) 850 mg PO BIDCC [facility] Last Admin: 03/29/18 17:24 Dose: Not Given Metoprolol Tartrate (Lopressor) 100 mg PO BID [facility] Last Admin: 03/29/18 17:21 Dose: 100 mg Potassium Chloride (K-Dur 20 Meq Er Tab) 20 meq PO DAILY [facility] Last Admin: 03/29/18 09:59 Dose: 20 meq Rosuvastatin Calcium (Crestor) 5 mg PO HS [facility] Last Admin: 03/29/18 21:38 Dose: 5 mg Sitagliptin Phosphate (Januvia) 50 mg PO DAILY [facility] Last Admin: 03/29/18 09:59 Dose: 50 mg Tamsulosin HCl (Flomax) 0.4 mg PO DAILY [facility] Last Admin: 03/29/18 09:59 Dose: 0.4 mg - Labs Labs: 03/29/18 11:07 03/29/18 11:07
[2018-03-30] MEDS: Piperacillin/Tazobact 3.375 GM in Sodium Chloride 100 ML IVPB SCH ×2 (04:30→10:30)
[2018-03-30] MEDS: (Novolin R) Insulin Human Regular 100 units/ml vial SC SCH ×2 (08:09→12:16)
[2018-03-30] MEDS: Potassium Chloride 20 mEq ER Tab PO SCH (11:00)
--- NOTE | 2018-03-30 14:54 | NM ---
Date of service: 03/30/2018 PROCEDURE: Three-phase bone Scan HISTORY: Left lower extremity, diabetic foot ulcer. COMPARISON: 03/28/2018 radiographs left foot and ankle. TECHNIQUE: Following administration of 24.5 miCu of Tc MDP three-phase bone scan performed with particular attention to the left ankle/left foot.. FINDINGS: Flow component: Increased flow to the left lower extremity without focal abnormality. Blood pool component: Increased accumulation of radionuclide about the left ankle without focal abnormality. Delayed images at 3:00: Punctate foci of increased uptake tarsal bone regions bilaterally. Other findings: None. IMPRESSION: Findings consistent with cellulitis left ankle region. No evidence of acute osteomyelitis.
[2018-03-30 16:38] VITALS: BP 135/74; PULSE 52; TEMP 98.2; O2SAT 99
--- NOTE | 2018-03-30 16:41 | CP.PCM.PN ---
Subjective - Date & Time of Evaluation Date of Evaluation: 03/30/18 Time of Evaluation: 16:41 - Subjective Subjective: Alert and orientedx3, no acute pain. Objective - Vital Signs/Intake and Output Vital Signs (last 24 hours): Temp Pulse Resp BP Pulse Ox 98.5 F 60 20 118/62 96 03/30/18 07:00 03/30/18 07:00 03/30/18 07:00 03/30/18 11:14 03/30/18 07:00 Intake and Output: 03/30/18 03/30/18 06:59 18:59 Intake Total 650 600 Output Total 1200 Balance -550 600 - Medications Medications: Current Medications Apixaban (Eliquis) 5 mg PO BID [facility] Last Admin: 03/30/18 11:00 Dose: 5 mg Finasteride (Proscar) 5 mg PO DAILY [facility] Last Admin: 03/30/18 11:00 Dose: 5 mg Furosemide (Lasix) 40 mg PO DAILY [facility] Last Admin: 03/30/18 11:14 Dose: 40 mg Piperacillin Sod/Tazobactam (Sod 3.375 gm/ Sodium Chloride) 100 mls @ 200 mls/hr IVPB Q6H [facility]; Protocol Last Admin: 03/30/18 10:30 Dose: 200 mls/hr Insulin Human Regular (Novolin R) 0 unit SC ACHS [facility]; Protocol Last Admin: 03/30/18 12:16 Dose: 2 u Losartan Potassium (Cozaar) 50 mg PO DAILY [facility] Last Admin: 03/30/18 11:00 Dose: 50 mg Metformin HCl (Glucophage) 850 mg PO BIDCC [facility] Last Admin: 03/30/18 08:42 Dose: 850 mg Metoprolol Tartrate (Lopressor) 100 mg PO BID [facility] Last Admin: 03/30/18 11:00 Dose: 100 mg Potassium Chloride (K-Dur 20 Meq Er Tab) 20 meq PO DAILY [facility] Last Admin: 03/30/18 11:00 Dose: 20 meq Rosuvastatin Calcium (Crestor) 5 mg PO HS [facility] Last Admin: 03/29/18 21:38 Dose: 5 mg Sitagliptin Phosphate (Januvia) 50 mg PO DAILY [facility] Last Admin: 03/30/18 11:00 Dose: 50 mg Tamsulosin HCl (Flomax) 0.4 mg PO DAILY [facility] Last Admin: 03/30/18 11:00 Dose: 0.4 mg - Labs Labs: 03/29/18 11:07 03/29/18 11:07 Assessment and Plan - Assessment and Plan (Free Text) Assessment: 62 year old male admitted with diabetic foot ulcer, seen and examined. Alert and orientedx3, denies acute pain on the foot. Bone scan resulted negative for osteomyelitis. Discussed with DR Osuna, plan to discharge home today and follow up with DR Sweet in 1 week. Also to follow up with PMD in 1 week. Advised to continue with present home medications.
--- NOTE | 2018-03-30 22:59 | CP.PCM.DIS ---
Provider - Provider Date of Admission: 03/27/18 21:17 Attending physician: Noel Osuna MD Hospital Course - Lab Results Lab Results: Micro Results 03/26/18 19:30 Blood Blood Culture - Preliminary NO GROWTH AFTER 4 DAYS 03/26/18 19:00 Blood Blood Culture - Preliminary NO GROWTH AFTER 4 DAYS 03/26/18 19:59 Urine,Clean Catch Urine Culture - Final No Growth (<1,000 CFU/ML) 03/26/18 20:50 Ankle - Left Gram Stain - Final 03/26/18 20:50 Ankle - Left Wound Culture - Final Coagulase Neg Staphylococcus Most Recent Lab Values WBC 5.6 K/uL (4.8-10.8) 03/29/18 11:07 RBC 4.55 Mil/uL (4.40-5.90) 03/29/18 11:07 Hgb 12.5 g/dL (12.0-18.0) 03/29/18 11:07 Hct 38.4 % (35.0-51.0) 03/29/18 11:07 MCV 84.4 fL (80.0-94.0) 03/29/18 11:07 MCH 27.6 pg (27.0-31.0) 03/29/18 11:07 MCHC 32.7 g/dL (33.0-37.0) L 03/29/18 11:07 RDW 13.5 % (11.5-14.5) 03/29/18 11:07 Plt Count 207 K/uL (130-400) 03/29/18 11:07 MPV 8.9 fL (7.2-11.7) 03/29/18 11:07 Neut % (Auto) 40.9 % (50.0-75.0) L 03/29/18 11:07 Lymph % (Auto) 38.2 % (20.0-40.0) 03/29/18 11:07 [facility] % (Auto) 9.3 % (0.0-10.0) 03/29/18 11:07 Eos % (Auto) 10.2 % (0.0-4.0) H 03/29/18 11:07 Baso % (Auto) 1.4 % (0.0-2.0) 03/29/18 11:07 Neut # (Auto) 2.3 K/uL (1.8-7.0) 03/29/18 11:07 Lymph # (Auto) 2.2 K/uL (1.0-4.3) 03/29/18 11:07 [facility] # (Auto) 0.5 K/uL (0.0-0.8) 03/29/18 11:07 Eos # (Auto) 0.6 K/uL (0.0-0.7) 03/29/18 11:07 Baso # (Auto) 0.1 K/uL (0.0-0.2) 03/29/18 11:07 Sodium 141 mmol/L (132-148) 03/29/18 11:07 Potassium 4.3 mmol/L (3.6-5.2) 03/29/18 11:07 Chloride 103 mmol/L (98-107) 03/29/18 11:07 Carbon Dioxide 26 mmol/L (22-30) 03/29/18 11:07 Anion Gap 15 (10-20) 03/29/18 11:07 BUN 14 mg/dL (9-20) 03/29/18 11:07 Creatinine 1.0 mg/dL (0.8-1.5) 03/29/18 11:07 Est GFR ( Amer) > 60 03/29/18 11:07 Est GFR (Non-Af Amer) > 60 03/29/18 11:07 POC Glucose (mg/dL) 102 mg/dL (65-110) 03/30/18 16:14 Random Glucose 129 mg/dL (75-110) H 03/29/18 11:07 Hemoglobin A1c 5.4 % (4.2-6.5) 03/29/18 11:07 Calcium 9.5 mg/dl (8.6-10.4) 03/29/18 11:07 Total Bilirubin 0.6 mg/dL (0.2-1.3) 03/26/18 19:57 AST 17 U/L (17-59) 03/26/18 19:57 ALT 19 U/L (21-72) L 03/26/18 19:57 Alkaline Phosphatase 35 U/L (38-126) L 03/26/18 19:57 Total Protein 7.4 g/dL (6.3-8.3) 03/26/18 19:57 Albumin 4.1 g/dL (3.5-5.0) 03/26/18 19:57 Globulin 3.3 gm/dL (2.2-3.9) 03/26/18 19:57 Albumin/Globulin Ratio 1.3 (1.0-2.1) 03/26/18 19:57 Urine Color Yellow (YELLOW) 03/26/18 19:57 Urine Clarity Clear (Clear) 03/26/18 19:57 Urine pH 5.0 (5.0-8.0) 03/26/18 19:57 Ur Specific [place] 1.016 (1.003-1.030) 03/26/18 19:57 Urine Protein Negative mg/dL (NEGATIVE) 03/26/18 19:57 Urine Glucose (UA) Normal mg/dL (Normal) 03/26/18 19:57 Urine Ketones Negative mg/dL (NEGATIVE) 03/26/18 19:57 Urine Blood Negative (NEGATIVE) 03/26/18 19:57 Urine Nitrate Negative (NEGATIVE) 03/26/18 19:57 Urine Bilirubin Negative (NEGATIVE) 03/26/18 19:57 Urine Urobilinogen 4.0 mg/dL (0.2-1.0) 03/26/18 19:57 Ur Leukocyte Esterase Neg [place]/uL (Negative) 03/26/18 19:57 Urine WBC (Auto) < 1 /hpf (0-5) 03/26/18 19:57 Urine RBC (Auto) 1 /hpf (0-3) 03/26/18 19:57 Ur Squamous Epith Cells 2 /hpf (0-5) 03/26/18 19:57 Discharge Exam - Head Exam Head Exam: ATRAUMATIC, NORMOCEPHALIC Discharge Plan - Follow Up Plan Condition: FAIR Disposition: HOME/ ROUTINE Instructions: Diabetic Foot Ulcer (DC), Diabetes Type 2 (DC) Referrals: Noel Osuna MD [Staff Provider] - Geraldo Sweet DPM [Staff Provider] -
--- NOTE | 2018-03-31 04:51 | DS ---
ADMISSION DIAGNOSES: Left leg ulcer. DISCHARGE DIAGNOSES: 1. Left leg ulcer. 2. Type 2 diabetes. 3. Hypertension. 4. Hyperlipidemia. HISTORY OF PRESENT ILLNESS: This is a 62-year-old -[place] male with history of diabetes, hypertension, hyperlipidemia who had an ulcer on the medial aspect, left ankle. He was admitted, started on antibiotics, Accu-Cheks, sliding scale, podiatry eval, and at present underwent bone scan which is negative for osteomyelitis. The patient is feeling better; he is for discharge. PHYSICAL EXAMINATION: VITAL SIGNS: He is afebrile. Blood pressure 135/74, pulse 52, respiratory rate 20, temperature 98.2. LUNGS: Clear. CVS: S1, S2. Regular. ABDOMEN: Soft. ASSESSMENT: 1. A left leg ulcer, nonischemic. Normal peripheral pulses. 2. Type 2 diabetes. 3. Hypertension. 4. Hyperlipidemia. PLAN: Discharge the patient. Noel Osuna MD
== END 2018-03-30 17:30 | disposition home or self-care (01) | DRG 638 ==
LOC: C.ER 18:47 → C.9E 21:30 → C.3T 22:25 → OBSVTOIN 03-27 21:17 → C.3T 03-28 01:24
PROVIDERS: ADMIT Internal Medicine; ATTEND Internal Medicine
DX: E11.622 Type 2 diabetes mellitus with other skin ulcer (principal); L97.329 Non-pressure chronic ulcer of left ankle with unspecified severity; L03.116 Cellulitis of left lower limb; E78.5 Hyperlipidemia, unspecified; I10 Essential (primary) hypertension; I87.8 Other specified disorders of veins